=== PATIENT | female | born 1995 | race Two or more races ===

== ENCOUNTER 2024-04-18 22:51 | Emergency (ER) | payer MEDICAID, SELFPAY ==
[2024-04-19 00:22] VITALS: BP 132/82; PULSE 112; RESP 18; TEMP 37.2; O2SAT 98; BMI 30.8
--- NOTE | 2024-04-19 00:39 | EDNOTE_ITS ---
ED Wound/Laceration-RME/HPI General Chief Complaint: Wound/Laceration Stated Complaint: LACERATION TO LEFT FINGER Time Seen by Provider: 04/19/24 00:33 Arrival date/time: 04/18/24 22:51 28F with no significant PMH presents to ED with L thumb lac after she accidentally cut herself. Patient does not know if she had a tetanus shot in the past 5 years, but she does not want one. Limitations: no limitations Related Data Home Medications ?Medication ?Instructions ?Recorded ?Confirmed ibuprofen 800 mg tablet 800 mg PO Q8HR PRN PAIN #0 t abs 12/04/14 Previous Rx's ?Medication ?Instructions ?Recorded Hydrocodone/Acetaminophen * (NORCO 1 tab PO Q4H PRN #4 5 tabs 12/07/14 7.5/325 *) methylprednisolone 4 mg tablets in See Rx Instructions .Route 08/07/19 a dose pack (Medrol (David)) .COMPLEX #21 tabs ibuprofen 800 mg tablet 800 mg PO TID PRN pain #30 t abs 07/11/21 hydrocodone 5 mg-acetaminophen 325 1 tab PO TID #15 ta bs 05/11/22 mg tablet Allergies Allergy/AdvReac Type Severity Reaction Status Date / Time No Known Allergies Allergy Verified 04/18/24 22:54 Review of Systems Review of Systems Systems Reviewed: All systems reviewed, normal except as documented Constitutional Constitutional: Reports system reviewed and no additional complaints, except as documented, Denies fever(s) and Denies headache(s) ENT Ears, Nose, Mouth, and Throat: Denies disequilibrium and Denies headache(s) Cardiovascular Cardiovascular: Reports system reviewed and no additional complaints, except as documented, Denies chest pain and Denies dyspnea Respiratory Respiratory: Reports system reviewed and no additional complaints, except as documented, Denies cough and Denies dyspnea Gastrointestinal Gastrointestinal: Reports system reviewed and no additional complaints, except as documented, Denies abdominal pain, Denies nausea and Denies vomiting Integumentary/Breasts Skin/Breast: Reports as per HPI and Reports skin pain Neurologic Neurologic: Reports system reviewed and no additional complaints, except as documented, Denies confusion, Denies disequilibrium and Denies headache(s) Psychiatric Psychiatric: Denies confusion Past Medical History Social History SMOKING STATUS: Never smoker ED Exam General Limitations: Present no limitations General appearance: Present alert and in no apparent distress Head Head exam: Present atraumatic Eye Eye exam: Present normal appearance, PERRL and EOMI ENT ENT exam: Present normal exam, normal oropharynx and mucous membranes moist Neck Neck exam: Present normal inspection, full ROM and trachea midline Chest Chest inspection: Present normal inspection and symmetric chest wall rise Respiratory Respiratory exam: Present normal lung sounds bilaterally Cardiovascular Cardiovascular exam: Present regular rate, normal rhythm and normal heart sounds Abdominal Exam Abdominal exam: Present soft and normal bowel sounds Extremities Exam Extremities exam: Present full ROM Expanded Upper Extremity Exam Hand exam: Present full ROM and laceration (1 cm lac L thumb (palmar)) Back Exam Back exam: Present normal inspection and full ROM Neurological Exam Neurological exam: Present alert, oriented X3 and CN II-XII intact Psychiatric Psychiatric exam: Present normal affect and normal mood Skin Skin exam: Present warm, dry, intact and normal color Course Quality Measures none Orders Category Date Time Status Set Up Suture Tray STAT Care 04/19/24 00:33 Active Wound Care NOW Care 04/19/24 00:33 Active Vital Signs Vital signs: Vital Signs Temperature 98.9 F 04/19/24 00:22 Pulse Rate 112 H 04/19/24 00:22 Respiratory Rate 18 04/19/24 00:22 Blood Pressure 132/82 H 04/19/24 00:22 Pulse Oximetry (%) 98 04/19/24 00:22 Oxygen Delivery Method Room Air 04/19/24 00:22 O2 at 98% on RA and WNLs Wound / Laceration MDM Narrative MDM Narrative:: 28F with no significant PMH presents to ED with L thumb lac after she accidentally cut herself. Patient does not know if she had a tetanus shot in the past 5 years, but she does not want one. Physical exam reveals 1 cm L thumb lac (palmar). ROM intact. Patient is afebrile, calm, and alert. Wound cleaned/irrigated and closed with 4 stitches. Given middle school counselor to have them removed in about 10-14 days. Patient data External records reviewed:: [facility] previous records Clinical information provided by:: patient Social determinants that could affect healthcare access:: none Patient has the following chronic illnesses:: none How is presenting disease/condition affected by chronic disease/condition?: no chronic disease Evaluation data The following diagnostics were reviewed and interpreted by me:: other (specify) (none) Lab and/or radiology exams considered but not ordered:: not ordered Interpretation Summary: n/a Medications / Prescriptions Medications or Prescriptions considered but not ordered:: not ordered Medication administrations:: n/a Consultations Consultation(s) initiated? (list below): No Diagnosis Wound Differential Diagnosis: laceration, abrasion and avulsion of skin Most likely diagnosis given after review of the tests above:: laceration Admission Indicated Admission indicated?: not indicated Admission Request Was there a request for admission?: No Disposition Plan Disposition Plan: Discharge Discharge Attestation Discharge Attestation: The patient and all family members were given an opportunity to ask questions and understood the discharge instructions. Discharge instructions specifically effects, indications for sooner follow up or return to the emergency department, and the expected course of current diagnosis. Patient condition: Stable Discharge Plan Plan Patient Disposition: HOME (Self Care) Disposition Comment: Stable Prescriptions/Referrals Prescriptions/Med Rec: No Action ibuprofen 800 MG tablet 800 mg PO Q8HR PRN (Reason: PAIN) Qty: 0 Hydrocodone/Acetaminophen * (NORCO 7.5/325 *) 1 TAB tablet 1 tab PO Q4H PRNQty: 45 0RF methylprednisolone [Medrol (David)] 4 mg tablets,dose pack See Rx Instructions .ROUTE .COMPLEX Qty: 21 0RF Rx Instructions: take as directed ibuprofen 800 mg tablet 800 mg PO TID PRN (Reason: pain) Qty: 30 0RF hydrocodone-acetaminophen 5-325 mg tablet 1 tab PO TID MDD 3 Qty: 15 0RF Referrals: Mili Scott FN (ARIACHL)P [Primary Care Provider] - In 1 week Problem List Clinical Impression: Laceration Patient/Caregiver Discharge Instructions Additional Instructions: Please follow-up with PCP within 24-48 hours and return immediately if symptoms worsen. Have stitches removed in about 10-14 days. Print Language: Croatian Stand Alone Forms: Patient Portal Info Letter SHERRI/OFFAL ICER POULTRY Supervising Physician SHERRI/OFFAL ICER POULTRY Supervising Physician: Dr. Figueroa
== END 2024-04-19 01:41 | disposition home or self-care (01) ==
PROVIDERS: Emergency Provider Emergency Medicine; PCP Nurse Practitioner Primary Care
DX: S61.012A Laceration without foreign body of left thumb without damage to nail, initial encounter (principal); W45.8XXA Other foreign body or object entering through skin, initial encounter
CPT/HCPCS: 12001; 99283

== ENCOUNTER 2024-11-25 07:40 | Emergency (ER) | payer MEDICAID, SELFPAY ==
[2024-11-25 07:51] VITALS: BP 119/84; PULSE 87; RESP 16; TEMP 36.9; O2SAT 98; BMI 28.0
--- NOTE | 2024-11-25 08:11 | EDNOTE_ITS ---
<Statement entered by Ritu Ramires MD - 11/25/24 16:01> As co-signing physician, I was present and available for consult prn. I concur with the plan and care as documented by the midlevel provider. ED Animal Bite RME/HPI General Chief Complaint: Animal Bite Stated Complaint: BABY MONKEY BIT L) 3RD FINGER 11/20 Time Seen by Provider: 11/25/24 07:46 Source: patient Arrival date/time: 11/25/24 07:40 29-year-old female with no known medical history presents to the emergency room with a chief complaint of tenderness, swelling, and warmth to her left hand third finger after being bit by a monkey while on vacation in the [place] on 11/20/2024 Mode of arrival: ambulatory Limitations: no limitations Related Data Home Medications ?Medication ?Instructions ?Recorded ?Confirmed ibuprofen 800 mg tablet 800 mg PO Q8HR PRN PAIN #0 t abs 12/04/14 Previous Rx's ?Medication ?Instructions ?Recorded Hydrocodone/Acetaminophen * (NORCO 1 tab PO Q4H PRN #4 5 tabs 12/07/14 7.5/325 *) methylprednisolone 4 mg tablets in See Rx Instructions .Route 08/07/19 a dose pack (Medrol (David)) .COMPLEX #21 tabs ibuprofen 800 mg tablet 800 mg PO TID PRN pain #30 t abs 07/11/21 hydrocodone 5 mg-acetaminophen 325 1 tab PO TID #15 ta bs 05/11/22 mg tablet amoxicillin 875 mg-potassium 1 tab PO BID 7 days #14 t abs 11/25/24 clavulanate 125 mg tablet Allergies Allergy/AdvReac Type Severity Reaction Status Date / Time No Known Allergies Allergy Verified 11/25/24 07:45 Review of Systems Review of Systems Systems Reviewed: All systems reviewed, normal except as documented Constitutional Constitutional: Reports system reviewed and no additional complaints, except as documented, Denies fatigue, Denies fever(s), Denies headache(s) and Denies weakness Eyes Eyes: Reports system reviewed and no additional complaints, except as documented, Denies blurry vision and Denies change in vision ENT Ears, Nose, Mouth, and Throat: Reports system reviewed and no additional complaints, except as documented, Denies otalgia, Denies headache(s), Denies nasal congestion, Denies throat swelling and Denies vertigo Cardiovascular Cardiovascular: Reports system reviewed and no additional complaints, except as documented, Denies chest pain, Denies dyspnea and Denies dyspnea on exertion Respiratory Respiratory: Reports system reviewed and no additional complaints, except as documented, Denies chest congestion, Denies cough, Denies dyspnea, Denies dyspnea on exertion and Denies wheezing Gastrointestinal Gastrointestinal: Reports system reviewed and no additional complaints, except as documented, Denies abdominal pain, Denies cramping, Denies nausea and Denies vomiting Genitourinary Genitourinary: Reports system reviewed and no additional complaints, except as documented Musculoskeletal Musculoskeletal: Reports system reviewed and no additional complaints, except as documented and Denies back pain Integumentary/Breasts Skin/Breast: Reports system reviewed and no additional complaints, except as documented, Reports erythema, Reports skin pain and Reports wounds Neurologic Neurologic: Reports system reviewed and no additional complaints, except as documented, Denies confusion, Denies headache(s), Denies lack of coordination, Denies vertigo and Denies weakness Psychiatric Psychiatric: Reports system reviewed and no additional complaints, except as documented, Denies anxiety, Denies confusion, Denies depression, Denies paranoia, Denies suicidal ideation and Denies tactile hallucinations Endocrine Endocrine: Reports system reviewed and no additional complaints, except as documented and Denies fatigue Hematologic/Lymphatic Hematologic/Lymphatic: Reports system reviewed and no additional complaints, except as documented and Denies lymphadenopathy Allergic/Immunologic Allergic/Immunologic: Reports system reviewed and no additional complaints, except as documented, Denies throat swelling, Denies urticaria and Denies wheezing Past Medical History Social History SMOKING STATUS: Never smoker ED Exam General Limitations: Present no limitations General appearance: Present alert and in no apparent distress Head Head exam: Present atraumatic Eye Eye exam: Present normal appearance, PERRL and EOMI ENT ENT exam: Present normal exam, normal oropharynx and mucous membranes moist Neck Neck exam: Present normal inspection, full ROM and trachea midline Chest Chest inspection: Present normal inspection and symmetric chest wall rise Respiratory Respiratory exam: Present normal lung sounds bilaterally Cardiovascular Cardiovascular exam: Present regular rate, normal rhythm and normal heart sounds Abdominal Exam Abdominal exam: Present soft and normal bowel sounds Extremities Exam Extremities exam: Present normal inspection and full ROM Back Exam Back exam: Present normal inspection and full ROM Neurological Exam Neurological exam: Present alert, oriented X3 and CN II-XII intact Psychiatric Psychiatric exam: Present normal affect and normal mood Skin Skin exam: Present warm, dry, intact and normal color Expanded Skin Exam Type of lesion: Present other (Cellulitis to the tip of the left middle finger) Distribution: Present LUE Description: Present tenderness, erythematous and swelling Course Quality Measures none Orders Category Date Time Status Set Up Suture Tray STAT Care 11/25/24 08:14 Active Wound Care NOW Care 11/25/24 08:14 Active Lidocaine 1% 20 ml [Xylocaine 1% 20 ML] Med 11/25/24 08:14 Discontinued 20 ml INFL X1 ONE Rabies Immune Globulin/Thimer [Kedrab Inj] Med 11/25/24 07:58 Discontinued 1,572.84 iu IM X1 ONE Rabies Vaccine (Pcec)/Pf [Rabavert Rabies Vacc w/ Med 11/25/24 07:58 Discontinued Diluent] 2.5 unit IM .ONCE ONE TET,DIP/PERT AC (Adult)-Tdap [Boostrix Adult (Tdap) Med 11/25/24 07:58 Discontinued Vacc] 0.5 ml IMI .ONCE ONE Vital Signs Vital signs: Vital Signs Temperature 98.4 F 11/25/24 07:51 Pulse Rate 87 11/25/24 07:51 Respiratory Rate 16 11/25/24 07:51 Blood Pressure 119/84 11/25/24 07:51 Pulse Oximetry (%) 98 11/25/24 07:51 Oxygen Delivery Method Room Air 11/25/24 07:51 Animal Bite MDM Narrative MDM Narrative:: 29-year-old female with no known medical history presents to the emergency room with a chief complaint of tenderness, swelling, and warmth to her left hand third finger after being bit by a monkey while on vacation in the [place] on 11/20/2024 Patient is hemodynamically stable and in no apparent distress. Patient is afebrile not tachycardic not tachypneic There are no neurological deficits. Physical examination of the left third digit has some tenderness some mild swelling and some warmth. The findings do show some mild cellulitis. Rabies prophylaxis was started on the patient and the patient's tetanus vaccination was updated. Patient was educated to return on 11/28/2024, 12/02/2024, and 12/09/2024. Antibiotics were also prescribed and sent to the patient's pharmacy Patient was discharged and educated to follow-up with primary care provider in the next 24 to 48 hours and return to the emergency room for any evidence of worsening signs or symptoms Patient data External records reviewed:: [facility] previous records Clinical information provided by:: patient Social determinants that could affect healthcare access:: none Patient has the following chronic illnesses:: No chronic illness How is presenting disease/condition affected by chronic disease/condition?: no chronic disease Evaluation data The following diagnostics were reviewed and interpreted by me:: lab results and radiology exam(s) Lab and/or radiology exams considered but not ordered:: Labs and radiology exams considered and ordered Interpretation Summary: N/A Medications / Prescriptions Medications or Prescriptions considered but not ordered:: Medication given Medication administrations:: Medication Administration History Discontinued Medications Diphtheria/Tetanus/Acell Pertussis (Diphth,Pertuss(Acell),Tet Vac 0.5 Ml Syr- Adult) 0.5 ml IMi .ONCE ONE Stop: 11/25/24 07:59 Last Admin: 11/25/24 08:19 Dose: 0.5 ml Documented By: SNOW Lidocaine HCl (Lidocaine Hcl 1% 20 Ml Vial) 20 ml INFL X1 ONE Stop: 11/25/24 08:15 Last Admin: 11/25/24 08:46 Dose: 20 ml Documented By: SNOW Comments: administered by TASHA parmar Rabies Immune Globulin (Rabies Immune Globulin 150 Iu/Ml Vial 2ml) 1,572.84 iu 20 iu/kg (1572.84 iu) IM X1 ONE Stop: 11/25/24 07:59 Last Admin: 11/25/24 08:39 Dose: 1,572.84 iu Documented By: SNOW Comments: administered by TASHA Parmar as directed. verified with pharmacist Miko [place] receiving initial dose Rabies Vaccine Chick Embryo Cell (Rabies Vaccine (Pcec)/Pf 2.5 Unit/Ml Vial) 2.5 unit IM .ONCE ONE Stop: 11/25/24 07:59 Last Admin: 11/25/24 08:31 Dose: 2.5 unit Documented By: SNOW Medication given Consultations Consultation(s) initiated? (list below): No Diagnosis Differential diagnosis animal bite: bite by animal, cat bite, dog bite and other (Wound due to monkey bite) Most likely diagnosis given after review of the tests above:: Wound due to monkey bite Admission Indicated Admission indicated?: not indicated Admission Request Was there a request for admission?: No Disposition Plan Disposition Plan: Discharge Discharge Attestation Discharge Attestation: The patient and all family members were given an opportunity to ask questions and understood the discharge instructions. Discharge instructions specifically effects, indications for sooner follow up or return to the emergency department, and the expected course of current diagnosis. Patient condition: Stable Discharge Plan Plan Patient Disposition: HOME (Self Care) Discharge Disposition comment: Stable Prescriptions/Referrals Prescriptions/Med Rec: New amoxicillin-pot clavulanate 875-125 mg tablet 1 tab PO BID 7 Days Qty: 14 0RF No Action ibuprofen 800 MG tablet 800 mg PO Q8HR PRN (Reason: PAIN) Qty: 0 Hydrocodone/Acetaminophen * (NORCO 7.5/325 *) 1 TAB tablet 1 tab PO Q4H PRNQty: 45 0RF methylprednisolone [Medrol (David)] 4 mg tablets,dose pack See Rx Instructions .ROUTE .COMPLEX Qty: 21 0RF Rx Instructions: take as directed ibuprofen 800 mg tablet 800 mg PO TID PRN (Reason: pain) Qty: 30 0RF hydrocodone-acetaminophen 5-325 mg tablet 1 tab PO TID MDD 3 Qty: 15 0RF Problem List Clinical Impression: Wound due to monkey bite Patient/Caregiver Discharge Instructions Education Materials: ED Animal Bite (General) Additional Instructions: Please follow-up with your primary care provider in the next 24 to 48 hours You will need to return on 11/28/2024, 12/02/2024, and 12/09/2024 for repeat rabies vaccinations Antibiotics were also sent to your pharmacy please pick them up and take them as indicated For any evidence of worsening signs or symptoms return to emergency room immediately Print Language: Kiswahili Stand Alone Forms: Mandy Award Info., Work/School Release, Patient Portal Info Letter Vaccines Vaccines Given During Stay: TDaP PA/ROBB Supervising Physician SHERRI/ROBB Supervising Physician: Dr. RAMIRES
[2024-11-25] MEDS: DIPHTH,PERTUSS(ACELL),TET VAC 0.5 ML SYR- ADULT IMi (08:19)
[2024-11-25] MEDS: RABIES VACCINE (PCEC)/PF 2.5 UNIT/ML VIAL IM (08:31)
[2024-11-25] MEDS: LIDOCAINE HCL 1% 20 ML VIAL INFL (08:46)
== END 2024-11-25 09:47 | disposition home or self-care (01) ==
LOC: SERX 08:37
PROVIDERS: Emergency Provider Nurse Practitioner Family; PCP Nurse Practitioner Primary Care
DX: S60.473A Other superficial bite of left middle finger, initial encounter (principal); L03.012 Cellulitis of left finger; W55.81XA Bitten by other mammals, initial encounter; Z20.3 Contact with and (suspected) exposure to rabies; Z23 Encounter for immunization
CPT/HCPCS: 90377; 90471; 90472; 90675; 90715; 96372; 99284; J3490

== ENCOUNTER 2024-11-28 10:05 | Emergency (ER) | payer MEDICAID, SELFPAY ==
--- NOTE | 2024-11-28 10:09 | EDNOTE_ITS ---
ED Animal Bite RME/HPI General Chief Complaint: Animal Bite Stated Complaint: HERE FOR REPEAT RABIES SHOT Time Seen by Provider: 11/28/24 10:08 Source: patient Arrival date/time: 11/28/24 10:05 29-year-old female with no known medical history presents to the emergency room to receive her second dose of her rabies vaccination Mode of arrival: ambulatory Limitations: no limitations Related Data Home Medications ?Medication ?Instructions ?Recorded ?Confirmed ibuprofen 800 mg tablet 800 mg PO Q8HR PRN PAIN #0 t abs 12/04/14 Previous Rx's ?Medication ?Instructions ?Recorded Hydrocodone/Acetaminophen * (NORCO 1 tab PO Q4H PRN #4 5 tabs 12/07/14 7.5/325 *) methylprednisolone 4 mg tablets in See Rx Instructions .Route 08/07/19 a dose pack (Medrol (David)) .COMPLEX #21 tabs ibuprofen 800 mg tablet 800 mg PO TID PRN pain #30 t abs 07/11/21 hydrocodone 5 mg-acetaminophen 325 1 tab PO TID #15 ta bs 05/11/22 mg tablet amoxicillin 875 mg-potassium 1 tab PO BID 7 days #14 t abs 11/25/24 clavulanate 125 mg tablet Allergies Allergy/AdvReac Type Severity Reaction Status Date / Time No Known Allergies Allergy Verified 11/25/24 07:45 Review of Systems Review of Systems Systems Reviewed: All systems reviewed, normal except as documented Constitutional Constitutional: Reports system reviewed and no additional complaints, except as documented, Denies fatigue, Denies fever(s), Denies headache(s) and Denies weakness Eyes Eyes: Reports system reviewed and no additional complaints, except as document ed, Denies blurry vision and Denies change in vision ENT Ears, Nose, Mouth, and Throat: Reports system reviewed and no additional complaints, except as documented, Denies otalgia, Denies headache(s), Denies nasal congestion, Denies throat swelling and Denies vertigo Cardiovascular Cardiovascular: Reports system reviewed and no additional complaints, except as documented, Denies chest pain, Denies dyspnea and Denies dyspnea on exertion Respiratory Respiratory: Reports system reviewed and no additional complaints, except as documented, Denies chest congestion, Denies cough, Denies dyspnea, Denies dyspnea on exertion and Denies wheezing Gastrointestinal Gastrointestinal: Reports system reviewed and no additional complaints, except as documented, Denies abdominal pain, Denies cramping, Denies nausea and Denies vomiting Genitourinary Genitourinary: Reports system reviewed and no additional complaints, except as documented Musculoskeletal Musculoskeletal: Reports system reviewed and no additional complaints, except as documented and Denies back pain Integumentary/Breasts Skin/Breast: Reports system reviewed and no additional complaints, except as documented and Denies wounds Neurologic Neurologic: Reports system reviewed and no additional complaints, except as documented, Denies confusion, Denies headache(s), Denies lack of coordination, Denies vertigo and Denies weakness Psychiatric Psychiatric: Reports system reviewed and no additional complaints, except as documented, Denies anxiety, Denies confusion, Denies depression, Denies paranoia, Denies suicidal ideation and Denies tactile hallucinations Endocrine Endocrine: Reports system reviewed and no additional complaints, except as documented and Denies fatigue Hematologic/Lymphatic Hematologic/Lymphatic: Reports system reviewed and no additional complaints, except as documented and Denies lymphadenopathy Allergic/Immunologic Allergic/Immunologic: Reports system reviewed and no additional complaints, except as documented, Denies throat swelling, Denies urticaria and Denies wheezing Past Medical History Social History SMOKING STATUS: Never smoker ED Exam General Limitations: Present no limitations General appearance: Present alert and in no apparent distress Head Head exam: Present atraumatic Eye Eye exam: Present normal appearance, PERRL and EOMI ENT ENT exam: Present normal exam, normal oropharynx and mucous membranes moist Neck Neck exam: Present normal inspection, full ROM and trachea midline Chest Chest inspection: Present normal inspection and symmetric chest wall rise Respiratory Respiratory exam: Present normal lung sounds bilaterally Cardiovascular Cardiovascular exam: Present regular rate, normal rhythm and normal heart sounds Abdominal Exam Abdominal exam: Present soft and normal bowel sounds Extremities Exam Extremities exam: Present normal inspection and full ROM Back Exam Back exam: Present normal inspection and full ROM Neurological Exam Neurological exam: Present alert, oriented X3 and CN II-XII intact Psychiatric Psychiatric exam: Present normal affect and normal mood Skin Skin exam: Present warm, dry, intact and normal color Course Quality Measures none Orders Category Date Time Status Rabies Vaccine (Pcec)/Pf [Rabavert Rabies Vacc w/ Med 11/28/24 10:08 Discontinued Diluent] 2.5 unit IM .ONCE ONE Animal Bite MDM Narrative MDM Narrative:: 29-year-old female with no known medical history presents to the emergency room to receive her second dose of her rabies vaccination Patient is hemodynamically stable and in no apparent distress. Patient is afebrile not tachycardic not tachypneic. Patient denies any neurological symptoms no headache dizziness lightheadedness. Patient is a GCS of 15 alert and oriented x 3 The wound on the patient's finger is healing appropriately. Patient is on Augmentin. Patient is here for the second dose of her rabies vaccination and it was given with no complications Patient was discharged and educated to follow-up with primary care provider in the next 24 to 48 hours and return to the emergency room for any evidence of worsening signs or symptoms Patient data External records reviewed:: [facility] previous records Clinical information provided by:: patient Social determinants that could affect healthcare access:: none Patient has the following chronic illnesses:: No chronic illness How is presenting disease/condition affected by chronic disease/condition?: no chronic disease Evaluation data The following diagnostics were reviewed and interpreted by me:: lab results and radiology exam(s) Lab and/or radiology exams considered but not ordered:: Labs and radiology exams considered and ordered Interpretation Summary: N/A Medications / Prescriptions Medications or Prescriptions considered but not ordered:: Medication given Medication administrations:: Medication Administration History Discontinued Medications Rabies Vaccine Chick Embryo Cell (Rabies Vaccine (Pcec)/Pf 2.5 Unit/Ml Vial) 2.5 unit IM .ONCE ONE Stop: 11/28/24 10:09 Second dose of rabies vaccination given Consultations Consultation(s) initiated? (list below): No Diagnosis Differential diagnosis animal bite: bite by animal, cat bite, dog bite and other (Encounter for rabies vaccination) Most likely diagnosis given after review of the tests above:: Encounter for rabies vaccination Admission Indicated Admission indicated?: not indicated Admission Request Was there a request for admission?: No Disposition Plan Disposition Plan: Discharge Discharge Attestation Discharge Attestation: The patient and all family members were given an opportunity to ask questions and understood the discharge instructions. Discharge instructions specifically effects, indications for sooner follow up or return to the emergency department, and the expected course of current diagnosis. Patient condition: Stable Discharge Plan Plan Patient Disposition: HOME (Self Care) Discharge Disposition comment: Stable Prescriptions/Referrals Prescriptions/Med Rec: No Action ibuprofen 800 MG tablet 800 mg PO Q8HR PRN (Reason: PAIN) Qty: 0 Hydrocodone/Acetaminophen * (NORCO 7.5/325 *) 1 TAB tablet 1 tab PO Q4H PRNQty: 45 0RF methylprednisolone [Medrol (David)] 4 mg tablets,dose pack See Rx Instructions .ROUTE .COMPLEX Qty: 21 0RF Rx Instructions: take as directed ibuprofen 800 mg tablet 800 mg PO TID PRN (Reason: pain) Qty: 30 0RF amoxicillin-pot clavulanate 875-125 mg tablet 1 tab PO BID 7 Days Qty: 14 0RF hydrocodone-acetaminophen 5-325 mg tablet 1 tab PO TID MDD 3 Qty: 15 0RF Problem List Clinical Impression: Encounter for repeat administration of rabies vaccination Patient/Caregiver Discharge Instructions Education Materials: What Vaccines Should You and Your Family Have Additional Instructions: Please follow-up with your primary care provider in the next 24 to 48 hours Your second dose of your rabies vaccination was given For any evidence of worsening signs or symptoms return to emergency room immediately Print Language: Guatemalan Stand Alone Forms: Mandy Award Info., Work/School Release, Patient Portal Info Letter PA/TELEPRINTER Supervising Physician PA/TELEPRINTER Supervising Physician: Dr. Rasheed
[2024-11-28 10:19] VITALS: BP 123/78; PULSE 76; RESP 16; TEMP 36.7; O2SAT 99; BMI 27.9
[2024-11-28] MEDS: RABIES VACCINE (PCEC)/PF 2.5 UNIT/ML VIAL IM (10:24)
== END 2024-11-28 10:55 | disposition home or self-care (01) ==
LOC: SERX 10:31
PROVIDERS: Emergency Provider Nurse Practitioner Family; PCP Nurse Practitioner Primary Care
DX: Z20.3 Contact with and (suspected) exposure to rabies (principal); Z23 Encounter for immunization
CPT/HCPCS: 90675; 99281

== ENCOUNTER 2024-12-02 18:47 | Emergency (ER) | payer MEDICAID, SELFPAY ==
[2024-12-02 19:39] VITALS: BP 108/74; PULSE 61; RESP 18; TEMP 36.7; O2SAT 99; BMI 28.4
--- NOTE | 2024-12-02 19:45 | PD.EDSKIN ---
ED Skin Abcess FB-RME/HPI General Chief complaint: General Adult/Misc Complain Stated complaint: 4TH RABIES VACCINE Time Seen by Provider: 12/02/24 19:43 Arrival date/time: 12/02/24 18:47 29F with no significant PMH presents to ED needing 3rd rabies vaccine after being bit by monkey while traveling. Limitations: no limitations Related Data Home Medications ?Medication ?Instructions ?Recorded ?Confirmed ibuprofen 800 mg tablet 800 mg PO Q8HR PRN PAIN #0 tabs 12/04/14 Previous Rx's ?Medication ?Instructions ?Recorded Hydrocodone/Acetaminophen * (NORCO 1 tab PO Q4H PRN #45 tabs 12/07/14 7.5/325 *) methylprednisolone 4 mg tablets in See Rx Instructions .Route 08/07/19 a dose pack (Medrol (David)) .COMPLEX #21 tabs ibuprofen 800 mg tablet 800 mg PO TID PRN pain #30 tabs 07/11/21 hydrocodone 5 mg-acetaminophen 325 1 tab PO TID #15 tabs 05/11/22 mg tablet Allergies Allergy/AdvReac Type Severity Reaction Status Date / Time No Known Allergies Allergy Verified 12/02/24 18:50 Review of Systems Review of Systems Systems Reviewed: All systems reviewed, normal except as documented Past Medical History Social History SMOKING STATUS: Never smoker ED Exam General Limitations: Present no limitations General appearance: Present alert and in no apparent distress Head Head exam: Present atraumatic Neck Neck exam: Present normal inspection, full ROM and trachea midline Chest Chest inspection: Present normal inspection and symmetric chest wall rise Neurological Exam Neurological exam: Present alert and oriented X3 Psychiatric Psychiatric exam: Present normal affect and normal mood Skin Skin exam: Present warm, dry, intact and normal color Course Quality Measures none Orders Category Date Time Status Rabies Vaccine (Pcec)/Pf [Rabavert Rabies Vacc w/ Med 12/02/24 19:44 Discontinued Diluent] 2.5 unit IM .ONCE ONE Vital Signs Vital signs: Vital Signs Temperature 98.1 F 12/02/24 19:39 Pulse Rate 61 12/02/24 19:39 Respiratory Rate 18 12/02/24 19:39 Blood Pressure 108/74 12/02/24 19:39 Pulse Oximetry (%) 99 12/02/24 19:39 Oxygen Delivery Method Room Air 12/02/24 19:39 O2 at 99% on RA and WNLs Skin / Abscess / Foreign Body MDM Narrative MDM Narrative:: 29F with no significant PMH presents to ED needing 3rd rabies vaccine after being bit by monkey while traveling. Physical exam reveals well-appearing female. Patient is afebrile, calm, and alert. Meds and corporate travel counselor given. Patient data External records reviewed:: [facility] previous records Clinical information provided by:: patient Social determinants that could affect healthcare access:: none Patient has the following chronic illnesses:: none How is presenting disease/condition affected by chronic disease/condition?: no chronic disease Evaluation data The following diagnostics were reviewed and interpreted by me:: other (specify) (none) Lab and/or radiology exams considered but not ordered:: not ordered Interpretation Summary: n/a Medications / Prescriptions Medications or Prescriptions considered but not ordered:: ordered Medication administrations:: Medication Administration History Discontinued Medications Rabies Vaccine Chick Embryo Cell (Rabies Vaccine (Pcec)/Pf 2.5 Unit/Ml Vial) 2.5 unit IM .ONCE ONE Stop: 12/02/24 19:45 above Consultations Consultation(s) initiated? (list below): No Diagnosis Skin/Abscess Differential Diagnosis: abscess of skin or subcutaneous tissue, viral exanthem, dermatophytosis, urticaria, herpes zoster, allergic reaction to drug, cellulitis, eczema, insect bites, impetigo, contact dermatitis and other (rabies vaccine) Most likely diagnosis given after review of the tests above:: rabies vaccine Admission Indicated Admission indicated?: not indicated Admission Request Was there a request for admission?: No Disposition Plan Disposition Plan: Discharge Discharge Attestation Discharge Attestation: The patient and all family members were given an opportunity to ask questions and understood the discharge instructions. Discharge instructions specifically effects, indications for sooner follow up or return to the emergency department, and the expected course of current diagnosis. Patient condition: Stable Discharge Plan Plan Patient Disposition: HOME (Self Care) Discharge Disposition comment: Stable Prescriptions/Referrals Prescriptions/Med Rec: No Action ibuprofen 800 MG tablet 800 mg PO Q8HR PRN (Reason: PAIN) Qty: 0 Hydrocodone/Acetaminophen * (NORCO 7.5/325 *) 1 TAB tablet 1 tab PO Q4H PRNQty: 45 0RF methylprednisolone [Medrol (David)] 4 mg tablets,dose pack See Rx Instructions .ROUTE .COMPLEX Qty: 21 0RF Rx Instructions: take as directed ibuprofen 800 mg tablet 800 mg PO TID PRN (Reason: pain) Qty: 30 0RF hydrocodone-acetaminophen 5-325 mg tablet 1 tab PO TID MDD 3 Qty: 15 0RF Problem List Clinical Impression: Encounter for repeat administration of rabies vaccination Patient/Caregiver Discharge Instructions Additional Instructions: Please follow-up with PCP within 24-48 hours and return immediately if symptoms worsen. Return on 12/09/24 for 4th and final rabies vaccine. Print Language: Divehi Stand Alone Forms: Patient Portal Info Letter SHERRI/ROBB Supervising Physician SHERRI/ROBB Supervising Physician: Dr. Rader
[2024-12-02] MEDS: RABIES VACCINE (PCEC)/PF 2.5 UNIT/ML VIAL IM (20:26)
== END 2024-12-02 20:31 | disposition home or self-care (01) ==
LOC: SERX 19:54
PROVIDERS: Emergency Provider Emergency Medicine
DX: Z23 Encounter for immunization (principal)
CPT/HCPCS: 90471; 90675; 99281